=== PATIENT | female | born 1980 | race Caucasian/White ===

== ENCOUNTER 2023-03-19 10:10 | Inpatient (IN) | payer BC, SELFPAY ==
[2023-03-19 10:19] VITALS: BP 125/85; PULSE 93; RESP 18; TEMP 36.6; O2SAT 99; BMI 39.5
--- NOTE | 2023-03-19 11:47 | ED.GENADULT ---
HPI - General Adult General Date Seen: 03/19/23 Chief complaint: Eye Problems Stated complaint: Needs steroid/IV Time Seen by Provider: 03/19/23 11:03 Source: patient and RN notes reviewed Mode of arrival: ambulatory Limitations: no limitations History of Present Illness HPI narrative: Patient is a 42-year-old referred here from her eye clinic for possible optic neuritis treatment. She says a couple weeks ago she developed fuzziness in her upper vision on the left. She says she rubbed her eye and it was painful. Her primary doctor put her on an antibiotic for a potential sinus infection but vision has continued to deteriorate. She was seen a total of 3 times in the eye clinic in today with the microscope she was felt to have subtle optic nerve swelling. She does have pain in the eye, she has pain when she looks up. She has not had any redness or photophobia. She has increased pain when she lays down at night. No trauma to the eye. No history of similar symptoms. She was sent here for an MRI and for IV steroids as well as coordination with a neurologist. Related Data Home Medications Medication Instructions Recorded Confirmed amoxicillin 875 mg-potassium 1 tab PO BID 03/19/23 03/19/23 clavulanate 125 mg tablet escitalopram oxalate 20 mg tablet 20 mg PO DAILY 03/19/23 03/19/23 Allergies Allergy/AdvReac Type Severity Reaction Status Date / Time No Known Drug Allergies Allergy Verified 03/19/23 10:23 Review of Systems Status of ROS: Reports: 10 or more systems reviewed and unremarkable except as noted in History and below [facility] Medical History (Updated 03/19/23 @ 14:16 by April Tracy MD) Anxiety ?F41.9 - Anxiety disorder, unspecified (ICD-10) Surgical History (Updated 03/19/23 @ 13:45 by Jessica Miller MD) H/O gastric sleeve ?Z90.3 - Acquired absence of stomach [part of] (ICD-10) Family History (Updated 03/19/23 @ 13:46 by Jessica Miller MD) Grandfather Multiple sclerosis Grandmother Multiple sclerosis Social History (Updated 03/19/23 @ 13:47 by Jessica Miller MD) Narrative: Lives with and 3 children. 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 No alcohol use, nonsmoker. able be medical decision maker if needed. Patient requests full code status. Exam Narrative: Exam Narrative: Vital signs as noted above. In general, an alert, well-appearing patient. Head: Normocephalic, atraumatic. Eyes: She has an afferent pupillary defect on the left. Extraocular movements are full. Pain with upward gaze. Conjunctivae are normal. ENT: Mucous membranes are moist. Throat is normal. Neck: Supple without lymphadenopathy. Heart: Regular rate and rhythm. No murmur or rub. Lungs: Clear bilaterally. No increased work of breathing, crackles or wheezes. Extremities: Well perfused. Pulses intact. Neurologic: Patient is alert and oriented to person and place. Speech is fluent. Face is symmetric. Moves all extremities equally. Affect: Normal. Skin: Warm and dry. Well perfused. Const: Vital Signs, click to edit/add: Vital Signs - 24 hr 03/19/23 10:19 Temperature 97.9 F Pulse Rate [Left P ulse Oximeter] 93 Respiratory Rate 18 Blood Pressure [Le ft Upper Arm] 125/85 Pulse Oximetry 99 Oxygen Delivery Me thod Room Air Documenting provider has reviewed patient's vital signs: yes Course Reevaluation(s) Reevaluation #1: I did speak with the patient's eye care provider, Marissa Mari with [facility] eye clinic in [place]. She was uncertain how to treat this and asked that I consult with Neurology. I talked with Dr. Joel at [facility]. He felt that given that her symptoms are acute and continue to be progressive that she would benefit from q.i.d. IV steroids for couple of days. Therefore I have recommended admission to her. She is comfortable without. An IV was placed and we gave her 250 mg of IV Solu-Medrol. I talked with MRI and they will get her in when they can for an MRI of the brain with and without contrast. Vital Signs Vital signs: Initial Vital Signs Temperature 97.9 F 03/19/23 10:19 Temperature Source Temporal Artery Scan 03/19/23 10:19 Pulse Rate 93 03/19/23 10:19 Pulse Rhythm Regular 03/19/23 10:19 Pulse Strength 3+ Normal 03/19/23 10:19 Respiratory Rate 18 03/19/23 10:19 Blood Pressure 125/85 03/19/23 10:19 Blood Pressure Mean 98 03/19/23 10:19 Blood Pressure Position Sitting 03/19/23 10:19 Pulse Oximetry 99 03/19/23 10:19 Oxygen Delivery Method Room Air 03/19/23 10:19 Vital Signs Temperature 97.9 F 03/19/23 10:19 Pulse Rate 93 03/19/23 10:19 Respiratory Rate 18 03/19/23 10:19 Blood Pressure 125/85 03/19/23 10:19 Pulse Oximetry 99 03/19/23 10:19 Oxygen Delivery Method Room Air 03/19/23 10:19 Temperature 97.9 F 03/19/23 10:19 Pulse Rate 93 03/19/23 10:19 Respiratory Rate 18 03/19/23 10:19 Blood Pressure 125/85 03/19/23 10:19 Pulse Oximetry 99 03/19/23 10:19 Oxygen Delivery Method Room Air 03/19/23 10:19 Medical Decision Making Lab Data Labs: Lab Results 03/19/23 03/19/23 Range/Units 11:50 12:28 WBC 7.89 (4.50-11.00) K/uL RBC 4.33 (4.00-5.20) m/uL Hgb 13.8 (12.0-16.0) gm/dL Hct 41.1 (33.0-51.0) % MCV 95 (80-100) fL MCH 32 (26-34) pg MCHC 34 (32-36) gm/dL RDW Coeff of Jeffy 12.1 (11.5-15.5) % Plt Count 350 (140-440) K/uL Neut % (Auto) 76.6 H (42.0-72.0) % Lymph % (Auto) 15.5 L (20-44) % Becker % (Auto) 5.6 (0.0-11.0) % Eos % (Auto) 1.9 (0.0-7.0) % Baso % (Auto) 0.3 (0.0-3.0) % Neut # (Auto) 6.00 (1.7-7.0) K/uL Lymph # (Auto) 1.20 (0.90-2.90) K/uL Becker # (Auto) 0.40 (0.00-0.90) K/UL Eos # (Auto) 0.15 (0.00-0.50) K/uL Baso # (Auto) 0.02 (0.00-0.30) K/uL SARS-CoV-2 (PCR) Negative SARS-CoV-2 (Negative) Influenza Type A (PCR) Negative PCR FLU A (Negative) Influenza Type B (PCR) Negative PCR FLU B (Negative) Discharge Plan Discharge Clinical Impression: Optic neuritis Patient Disposition: Admitted As Inpatient Condition: Stable Activity Level: No Restrictions Discharge Diet: Regular
[2023-03-19] MEDS: METHYLPREDNISOLONE SOD SUCC 62.5 MG/ML (125) 250 MG IVP (12:45)
[2023-03-19 13:28] LABS: PCR FLU A Negative PCR FLU A (Negative); PCR FLU B Negative PCR FLU B (Negative)
[2023-03-19 13:29] LABS: SARS PCR* Negative SARS-CoV-2 (Negative)
--- NOTE | 2023-03-19 13:33 | PM.IMHP1 ---
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 She had been having issues with her left eye for approximately 1 week; so 1 of her optometrists partners and her PCP last week for intermittent blurry vision and left eye pain. Apparently, dilated eye exam last week was within normal limits with 20/20 vision; today, she was found to be 200/20 with concern for optic neuritis. Patient continues to note continued intermittent fuzziness in her L eye and pain in her left eye, worse towards the end of the day. In the emergency room, Neurology was consulted. They recommend Solu-Medrol 125 mg q.i.d. for 2 days followed by oral steroid taper. Patient also needs an MRI of her brain with and without contrast to evaluate for MS or other intracranial process. Past medical history updated below. Patient's PCP is Dr. Chow locally. Review of Systems Narrative: - has noted twitching of her RIGHT upper eyelid over the past few days, right eye's vision is within normal limits - intermittent achiness of bilateral knees and right hip, no other arthralgias - no concerning skin lesions or rashes - no abdominal pain - no urinary concerns - has a headache when I see her, this started after receiving Solu-Medrol in the ER [facility] Medical History (Updated 03/19/23 @ 13:45 by Jessica Miller MD) Anxiety ?F41.9 - Anxiety disorder, unspecified (ICD-10) Surgical History (Updated 03/19/23 @ 13:45 by Jessica Miller MD) H/O gastric sleeve ?Z90.3 - Acquired absence of stomach [part of] (ICD-10) Family History (Updated 03/19/23 @ 13:46 by Jessica Miller MD) Grandfather Multiple sclerosis Grandmother Multiple sclerosis Social History (Updated 03/19/23 @ 13:47 by Jessica Miller MD) Narrative: 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 able be medical decision maker if needed. Patient requests full code status. Meds Home Medications and Allergies Home Medications Medication Instructions Recorded Confirmed Type escitalopram oxalate 20 mg tablet 20 mg PO DAILY 03/19/23 03/19/23 History Allergies Allergy/AdvReac Type Severity Reaction Status Date / Time No Known Drug Allergies Allergy Verified 03/19/23 10:23 Exam Narrative: Exam Narrative: GEN: Alert and oriented, sitting comfortably in bed HEENT: Notably sees fuzziness and color changes in left lateral visual field. EOMIs bilaterally, no scleral icterus CV: RRR, No concerning murmurs, rubs, or gallops R: LCTA bilaterally without concerning wheezing, rales, or rhonchi Ext: wwp, no concerning edema Skin: No concerning skin lesions or rashes on exposed skin Neuro: Nonfocal Psych: Appropriate Const: Vital Signs, click to edit/add: Vital Signs - 24 hr 03/19/23 10:19 Temperature 97.9 F Pulse Rate [Left P ulse Oximeter] 93 Respiratory Rate 18 Blood Pressure [Le ft Upper Arm] 125/85 Pulse Oximetry 99 Oxygen Delivery Me thod Room Air Assessment and Plan Assessment and plan (1) Optic neuritis: Problem comment: - noted by retarder operator 03/19 - per Neurology, treat with 250mg of Solu-Medrol IV QID followed by oral Prednisone taper - MRI of brain with and without contrast ordered, plan pending results Status: Acute Plan - per above - IV PPI given steroid use and history of gastric sleeve - prn anti-anxiety and sleep medications given high dose steroids - SCDs and ambulation for ppx
--- NOTE | 2023-03-19 13:50 | CRLHL7_ITS ---
For Patients: As a result of the Cures Act, medical imaging exams and procedure reports are released immediately into your electronic medical record. You may view this report before your referring provider. If you have questions, please contact your health care provider. INDICATION: Optic neuritis. TECHNIQUE: Multiplanar multisequence MR imaging acquired through the brain prior to and following intravenous contrast. COMPARISON: None. FINDINGS: Mild supratentorial and infratentorial T2 hyperintense white matter lesions. Supratentorial lesions notably involve the periventricular and subcortical white matter as well as the right corpus callosum posterior body. Notable infratentorial lesion within the left ventral pat. Mild T1 hypointense lesion load. No enhancing lesions. Pathologic enhancement within the left optic nerve intracavitary segment (series 9, image 14 and series 8, image 18). The ventricles and sulci are within normal limits for patient age. No mass effect or midline shift. No intracranial hemorrhage or pathologic extra-axial fluid collection. No diffusion restriction to suggest acute infarction. No pathologic brain parenchymal enhancement. The major arterial flow voids of the skullbase are preserved. The globes are symmetric. The paranasal sinuses are well aerated. Trace left mastoid effusion. IMPRESSION: 1. Mild supratentorial and infratentorial T2 hyperintense white matter lesions, most compatible with sequelae of demyelinating disease such as multiple sclerosis. No enhancing lesions to suggest active demyelination. Mild T1 hypointense lesion load without cerebral volume loss. 2. Pathologic enhancement within the left optic nerve intracanalicular segment likely represents sequelae of optic neuritis. Dictated by Landen Lawler MD @ 03/19/2023 8:46:11 PM (Electronically Signed)
[2023-03-19 14:04] LABS: Basophils Absolute Auto 0.02 K/uL (0.00-0.30); Basophils Percent Auto 0.3 % (0.0-3.0); Eosinophils Absolute Auto 0.15 K/uL (0.00-0.50); Eosinophils Percent Auto 1.9 % (0.0-7.0); Hematocrit 41.1 % (33.0-51.0); Hemoglobin* 13.8 gm/dL (12.0-16.0); Immature Granulocytes Abs Auto 0.01 K/uL (0.00-0.30); Immature Granulocytes Pct Auto 0.1 %; Lymphocytes Percent Auto 15.5 % (20-44); Mean Corpuscular HGB Conc 34 gm/dL (32-36); Mean Corpuscular Hemoglobin 32 pg (26-34); Mean Corpuscular Volume 95 fL (80-100); Monocytes Percent Auto 5.6 % (0.0-11.0); Neutrophils Percent Auto 76.6 % (42.0-72.0); Platelet Count* 350 K/uL (140-440); RDW Coefficient of Variation % 12.1 % (11.5-15.5); Red Blood Count 4.33 m/uL (4.00-5.20); White Blood Count* 7.89 K/uL (4.50-11.00)
--- NOTE | 2023-03-19 14:04 | ED.NURSE ---
Pt in a gown and prefers to keep her pants on at this time. Pt transporting with all her belonging to Med/Surg floor with Tech.
[2023-03-19 14:09] LABS: Slide Review Reflex No
[2023-03-19 14:17] VITALS: BP 133/86; PULSE 85; RESP 18; TEMP 36.7; O2SAT 96
[2023-03-19 14:18] LABS: Albumin* 4.1 g/dL (3.3-5.0); Chloride* 105 mmol/L (96-114); Potassium* 3.5 mmol/L (3.6-5.1); Sodium* 139 mmol/L (135-149)
[2023-03-19 14:20] LABS: Creatinine* 0.8 mg/dL (0.5-1.5); Est. Creatinine Clearance* 91.47; Estimated Glomerular Filt Rate 94 ml/min
[2023-03-19 14:21] LABS: Alanine Aminotransferase* 14 U/L (4-35); Alkaline Phosphatase* 84 U/L (40-150); Aspartate Amino Transferase* 18 U/L (12-35); Bilirubin Total* 0.6 mg/dL (0.1-1.5); Blood Urea Nitrogen* 11 mg/dL (5-24); Calcium* 8.9 mg/dL (8.4-10.6); Carbon Dioxide* 30 mmol/L (20-32); Glucose* 77 mg/dL (60-115); Total Protein* 7.1 g/dL (6.0-8.3)
[2023-03-19 15:00] VITALS: BP 133/86; PULSE 85; RESP 18; TEMP 36.7; O2SAT 96
[2023-03-19 15:11] LABS: Vitamin B12* 424 pg/mL (243-894)
[2023-03-19] MEDS: PANTOPRAZOLE SODIUM 40 MG INJ IVP (15:42)
[2023-03-19] MEDS: ACETAMINOPHEN 325 MG TABLET 975 MG PO (16:45)
[2023-03-19] MEDS: METHYLPREDNISOLONE SOD SUCC 62.5 MG/ML (125) 125 MG IVP (18:27)
[2023-03-19 20:00] VITALS: BP 120/83; PULSE 96; RESP 20; TEMP 36.7; O2SAT 95
--- NOTE | 2023-03-19 22:01 | P.IMPN_ITS ---
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 We discussed optic neuritis, MS, treatment with high dose steroids, and recommendation to see neurology as an outpatient. Exam Const: Vital Signs, click to edit/add: Vital Signs - 24 hr 03/19/23 10:19 03/19/23 14:17 03/19/23 15:00 Temperature 97.9 F 98.1 F Pulse Rate [Left P ulse Oximeter] 93 Pulse Rate [Pulse Oximeter] 85 85 Respiratory Rate 18 18 18 Blood Pressure [Le ft Upper Arm] 125/85 Blood Pressure [Ri ght Arm] 133/86 Pulse Oximetry 99 96 Oxygen Delivery Me thod Room Air Room Air 03/19/23 15:00 03/19/23 15:00 03/19/23 14:17 Temperature 98.1 F Pulse Rate [Left P ulse Oximeter] Pulse Rate [Pulse Oximeter] 85 Respiratory Rate 18 18 18 Blood Pressure [Le ft Upper Arm] Blood Pressure [Ri ght Arm] 133/86 Pulse Oximetry 96 96 96 Oxygen Delivery Me thod Room Air Room Air Room Air 03/19/23 20:00 Temperature 98.0 F Pulse Rate [Left P ulse Oximeter] Pulse Rate [Pulse Oximeter] 96 Respiratory Rate 20 Blood Pressure [Le ft Upper Arm] Blood Pressure [Ri ght Arm] 120/83 Pulse Oximetry 95 Oxygen Delivery Me thod Room Air Labs Labs: Laboratory Results - last 24 hr 03/19/23 03/19/23 11:50 12:28 WBC 7.89 RBC 4.33 Hgb 13.8 Hct 41.1 MCV 95 MCH 32 MCHC 34 RDW Coeff of Jeffy 12.1 Plt Count 350 Neut % (Auto) 76.6 H Lymph % (Auto) 15.5 L Barbour % (Auto) 5.6 Eos % (Auto) 1.9 Baso % (Auto) 0.3 Neut # (Auto) 6.00 Lymph # (Auto) 1.20 Barbour # (Auto) 0.40 Eos # (Auto) 0.15 Baso # (Auto) 0.02 Sodium 139 Potassium 3.5 L Chloride 105 Carbon Dioxide 30 BUN 11 Creatinine 0.8 Estimated Creat Clear 91.47 Estimated GFR 94 Glucose 77 Calcium 8.9 Magnesium 2.0 Total Bilirubin 0.6 AST 18 ALT 14 Alkaline Phosphatase 84 Total Protein 7.1 Albumin 4.1 Vitamin B12 424 SARS-CoV-2 (PCR) Negative SARS-CoV-2 Influenza Type A (PCR) Negative PCR FLU A Influenza Type B (PCR) Negative PCR FLU B Ordering Physician: Jessica Miller M.D. Date of Service: 03/19/23 Procedure(s): MR head/brain wo/w con Accession Number(s): [id number] cc: Jessica Miller M.D.; Mattie Gould M.D.~ For Patients: As a result of the Cures Act, medical imaging exams and procedure reports are released immediately into your electronic medical record. You may view this report before your referring provider. If you have questions, please contact your health care provider. INDICATION: Optic neuritis. TECHNIQUE: Multiplanar multisequence MR imaging acquired through the brain prior to and following intravenous contrast. COMPARISON: None. FINDINGS: Mild supratentorial and infratentorial T2 hyperintense white matter lesions. Supratentorial lesions notably involve the periventricular and subcortical white matter as well as the right corpus callosum posterior body. Notable infratentorial lesion within the left ventral pat. Mild T1 hypointense lesion load. No enhancing lesions. Pathologic enhancement within the left optic nerve intracavitary segment (series 9, image 14 and series 8, image 18). The ventricles and sulci are within normal limits for patient age. No mass effect or midline shift. No intracranial hemorrhage or pathologic extra-axial fluid collection. No diffusion restriction to suggest acute infarction. No pathologic brain parenchymal enhancement. The major arterial flow voids of the skullbase are preserved. The globes are symmetric. The paranasal sinuses are well aerated. Trace left mastoid effusion. IMPRESSION: 1. Mild supratentorial and infratentorial T2 hyperintense white matter lesions, most compatible with sequelae of demyelinating disease such as multiple sclerosis. No enhancing lesions to suggest active demyelination. Mild T1 hypointense lesion load without cerebral volume loss. 2. Pathologic enhancement within the left optic nerve intracanalicular segment likely represents sequelae of optic neuritis. Dictated by Landen Lawler MD @ 03/19/2023 8:46:11 PM (Electronically Signed)
[2023-03-20] VITALS (7 sets, daily range): BP systolic 107–132; BP diastolic 70–93; PULSE 78–98; RESP 12–18; TEMP 36.4–37.1; O2SAT 94–98
[2023-03-20] MEDS: METHYLPREDNISOLONE SOD SUCC 62.5 MG/ML (125) 125 MG IVP ×3 (00:05→12:07)
[2023-03-20] MEDS: SODIUM CHLORIDE 0.9 % (FLUSH) 10 ML SYRINGE 5 ML IVF ×3 (00:21→21:03)
[2023-03-20] MEDS: MELATONIN 3 MG TABLET PO (02:02)
--- NOTE | 2023-03-20 07:38 | PC.NURSE ---
Pt is alert and oriented x3. Afebrile. Pt denies chest pain, SOB, and N/V. Pt continues to report blurred and darkened vision but states ?I can now see the clock that I could not see when I first got here.? Pt is up Ind, voiding, and tolerating a regular diet. Pt reports sleeping poorly throughout night, PRN melatonin was given with minimal relief.?Pt IV was taken out around 0600 do to infiltration, catheter tip was intact.
[2023-03-20] MEDS: ESCITALOPRAM 10 MG TABLET 20 MG PO (11:21)
[2023-03-20] MEDS: ACETAMINOPHEN 325 MG TABLET 975 MG PO (12:17)
[2023-03-20] MEDS: METHYLPREDNISOLONE SOD SUCC 1,000 MG in 0.9 % SODIUM CHLORIDE 100 ml 100 ML 116 MG IVPB (13:50)
[2023-03-20] MEDS: PANTOPRAZOLE SODIUM 40 MG INJ IVP (14:06)
[2023-03-20 15:06] LABS: Color CSF Colorless (Colorless); Total Volume 5.5 mL (0-6)
[2023-03-20 15:32] LABS: CSF Mononuclear Cells 100 %; CSF Polynuclear Cells 0 %; WBC, CSF 4 Cells/uL
[2023-03-20 15:58] LABS: RBC, CSF 1 Cells/uL
[2023-03-20 16:00] LABS: Appearance CSF Clear (Clear)
--- NOTE | 2023-03-20 17:05 | P.IMPN_ITS ---
Progress Note: A&P Assessment and plan (1) Optic neuritis: Problem details: - noted by business teacher 03/19 - MRI concerning for MS - reviewed with Dr. Underwood of [facility] on 03/20: he recommends changing steroid dosing to 1000mg of IV Solumedrol once daily for 5 days, no taper - outpatient referral to [facility] placed 03/20/23 Status: Acute (2) Multiple sclerosis: Status: Suspected Plan - continue high dose IV steroid - if patient remains stable and continues to tolerate, home tomorrow with outpatient IV steroid treatment - updated at bedside, questions answered Subjective Date Seen: 03/20/23 Interval history: No acute events overnight. Patient is aware of her MRI results (likely MS). L eye pain has improved, still has visual field deficits. Exam Narrative: Exam Narrative: GEN: Alert and oriented, sitting comfortably in bed. Notes continued decrease vision in L visual field, no scleral icterus. She is breathing comfortably without tachypnea. Extremities are wwp without edema. She has no concerning skin lesions or rashes on exposed skin Const: Vital Signs, click to edit/add: Vital Signs - 24 hr 03/19/23 20:00 03/20/23 00:05 03/20/23 00:05 Temperature 98.0 F Pulse Rate [Pulse Oximeter] 96 89 Respiratory Rate 20 18 18 Blood Pressure [Ri ght Arm] 120/83 Pulse Oximetry 95 94 Oxygen Delivery Me thod Room Air Room Air 03/20/23 00:05 03/20/23 02:00 03/20/23 07:00 Temperature 97.6 F 97.7 F Pulse Rate [Pulse Oximeter] 89 78 79 Respiratory Rate 18 18 18 Blood Pressure [Ri ght Arm] 132/81 111/74 Pulse Oximetry 94 95 Oxygen Delivery Me thod Room Air Room Air 03/20/23 07:00 03/20/23 07:00 03/20/23 11:00 Temperature 98.1 F 98.0 F Pulse Rate [Pulse Oximeter] 79 82 Respiratory Rate 16 18 18 Blood Pressure [Ri ght Arm] 107/70 124/85 Pulse Oximetry 95 95 98 Oxygen Delivery Ny thod Room Air Room Air Room Air 03/20/23 15:00 03/20/23 15:00 Temperature 98.7 F Pulse Rate [Pulse Oximeter] 98 Respiratory Rate 16 Blood Pressure [Ri ght Arm] 116/93 H Pulse Oximetry 96 96 Oxygen Delivery Me thod Room Air Room Air Labs Labs: Laboratory Results - last 24 hr 03/20/23 13:54 CSF Volume 5.5 CSF Appearance Clear CSF Color Colorless CSF WBC 4 CSF RBC 1 CSF Mononuclear Cells 100 CSF Polynuclear WBCs 0
--- NOTE | 2023-03-20 19:12 | PC.NURSE ---
Alert and oriented x 3, denies any pain at this time. Lungs clear, bowels active x 4 quadrants. Independent in room. Continues to report blurry vision to left eye, no change since admission. Iv to right hand patent and flushed without difficulty. Patient declined discharging home after discussion with her . Appetite fair, patient reports foods and fluids taste weird. Reporting increase restless leg symptoms, patient has walked the hallways in attempt to help with restlessness. Dr. Miller updated with restlessness and would like staff to encourage patient to utilize prn Ativan. Patient agreed to utilize prn ativan at bedtime.
[2023-03-20 19:28] LABS: Glucose, CSF* 98 Mg/dL (40-70); Total Protein, CSF 39 Mg/dL (15-45)
[2023-03-20] MEDS: LORazepam 0.5 MG TABLET PO (21:02)
[2023-03-21 03:46] VITALS: RESP 12
--- NOTE | 2023-03-21 06:17 | PC.NURSE ---
Patient is alert and oriented x 4, on RA, vss, regular diet, up ad ti, intake and output is normal and patient denies pain.
[2023-03-21 07:00] VITALS: RESP 16; O2SAT 93
[2023-03-21 09:00] VITALS: BP 121/79; PULSE 84; RESP 16; TEMP 36.6; O2SAT 97
[2023-03-21] MEDS: ESCITALOPRAM 10 MG TABLET 20 MG PO (09:23)
[2023-03-21] MEDS: SODIUM CHLORIDE 0.9 % (FLUSH) 10 ML SYRINGE 5 ML IVF (09:23)
[2023-03-21] MEDS: METHYLPREDNISOLONE SOD SUCC 1,000 MG in 0.9 % SODIUM CHLORIDE 100 ml 100 ML 116 MG IVPB (10:34)
--- NOTE | 2023-03-21 11:39 | PM.DS1 ---
DS: Providers Provider Time Seen by Provider: 11:39 Date Seen: 03/21/23 Date of admission: 03/19/23 14:03 Primary care physician: Mattie Gould MD Admitting Clinician: Jessica Miller MD Attending Physician on discharge: Amandeep Bautista MD Date of Discharge: 03/21/23 DS: Diagnosis Discharge Diagnosis (1) Multiple sclerosis: Status: Suspected (2) Optic neuritis: Status: Acute Problem details: - noted by masticator 03/19 - MRI concerning for MS - reviewed with Dr. Underwood of [facility] on 03/20: he recommends changing steroid dosing to 1000mg of IV Solumedrol once daily for 5 days, no taper - outpatient referral to [facility] placed 03/20/23 - Eye pain completely resolved on day of discharge, still having blurry vision in affected eye on day of discharge DS: Summary Hospital Course Hospital Course: Kailyn had a 1 week history of worsening left eye pain and blurry vision. Serial optometry exams showed a decline in vision from 20/20 to 20/200 in her left eye. She was referred to the ER by Optometry. She received about a day of Solumedrol [address] Miller consulted Dr. Underwood of [facility] and he recommended they increase her Solumedrol to 1000 mg Q24 hours and do that for 5 days. [facility] is to contact her with an appointment soon. Status at Discharge Functional status at discharge: independent ambulation Time Spent with Patient Time attestation: Total time spent providing and/or coordinating discharge services: Time spent: Greater than 30 minutes Specific discharge activities: Counseling and coordinating care. Exam Const: Vital Signs, click to edit/add: Vital Signs - 24 hr 03/20/23 15:00 03/20/23 15:00 03/20/23 19:00 Temperature 98.7 F 98.7 F Pulse Rate [Pulse Oximeter] 98 96 Respiratory Rate 16 12 Blood Pressure [Ri ght Arm] 116/93 H 131/75 Pulse Oximetry 96 96 95 Oxygen Delivery Me thod Room Air Room Air Room Air 03/20/23 23:00 03/20/23 23:00 03/20/23 23:00 Temperature Pulse Rate [Pulse Oximeter] Respiratory Rate 12 12 Blood Pressure [Ri ght Arm] Pulse Oximetry Oxygen Delivery Me thod Room Air 03/21/23 03:46 03/21/23 09:00 03/21/23 07:00 Temperature 97.9 F Pulse Rate [Pulse Oximeter] 84 Respiratory Rate 12 16 16 Blood Pressure [Ri ght Arm] 121/79 Pulse Oximetry 97 93 Oxygen Delivery Me thod Room Air Room Air Cardiovascular exam regular rate and rhythm without murmur Lungs clear to auscultation bilaterally. Abdomen positive bowel sounds soft nontender. Neurologic exam shows decreased vision in the left eye. Otherwise cranial nerves are intact and symmetric. Musculoskeletal is she has good strength and range of motion x4. DS: Data Data Completed and Pending Labs on day of discharge: Labs from last 24 hours 03/20/23 13:54 CSF Volume 5.5 CSF Appearance Clear CSF Color Colorless CSF WBC 4 CSF RBC 1 CSF Mononuclear Cells 100 CSF Polynuclear WBCs 0 CSF Glucose 98 H CSF Total Protein 39 Imaging MRI - head: Radiologist's impression: INDICATION: Optic neuritis. TECHNIQUE: Multiplanar multisequence MR imaging acquired through the brain prior to and following intravenous contrast. COMPARISON: None. FINDINGS: Mild supratentorial and infratentorial T2 hyperintense white matter lesions. Supratentorial lesions notably involve the periventricular and subcortical white matter as well as the right corpus callosum posterior body. Notable infratentorial lesion within the left ventral pat. Mild T1 hypointense lesion load. No enhancing lesions. Pathologic enhancement within the left optic nerve intracavitary segment (series 9, image 14 and series 8, image 18). The ventricles and sulci are within normal limits for patient age. No mass effect or midline shift. No intracranial hemorrhage or pathologic extra-axial fluid collection. No diffusion restriction to suggest acute infarction. No pathologic brain parenchymal enhancement. The major arterial flow voids of the skullbase are preserved. The globes are symmetric. The paranasal sinuses are well aerated. Trace left mastoid effusion. IMPRESSION: 1. Mild supratentorial and infratentorial T2 hyperintense white matter lesions, most compatible with sequelae of demyelinating disease such as multiple sclerosis. No enhancing lesions to suggest active demyelination. Mild T1 hypointense lesion load without cerebral volume loss. 2. Pathologic enhancement within the left optic nerve intracanalicular segment likely represents sequelae of optic neuritis. Dictated by Landen Lawler MD @ 03/19/2023 8:46:11 PM (Electronically Signed) Discharge Plan Discharge Disposition: Home, Self-Care Date of Admission: 03/19/23 14:03 Attending Provider on Discharge: Amandeep Bautista Primary Care Provider: Mattie Gould I Condition: Stable Anticipated Discharge Date/Time: 03/21/23 11:30 Discharge Medications: New Methylprednisolone Sod Succ [SOLU-MedroL] 1000 MG 0.9 % SODIUM CHLORIDE 100 ml 100 ML 116 mls/hr IVPB Q24H Ordered By: Jessica Miller MD Last Taken: 03/20/23 13:50 116 mls/hr Methylprednisolone Sod Succ [SOLU-MedroL] 1000 MG 0.9 % SODIUM CHLORIDE 100 ml 100 ML 116 mls/hr IVPB Q24H Ordered By: Amandeep Bautista MD Last Taken: 03/21/23 10:34 116 mls/hr pantoprazole [Protonix] 40 mg tablet,delayed release (DR/EC) 40 mg PO DAILY Qty: 7 0RF lorazepam 0.5 mg tablet 0.5 mg PO QHS PRN (Reason: sleep) Qty: 8 0RF Continued escitalopram oxalate 20 mg tablet 20 mg PO DAILY Discontinued amoxicillin-pot clavulanate 875-125 mg tablet 1 tab PO BID Discharge Orders: Discharge Order (Routine); Ordered 03/21/23 Ordered By: Amandeep Bautista Patient Education: Optic Neuritis (DC) Additional Instructions: For sleep, can take Benadryl (generic name Diphenhydramine) 25-50mg before bed. Referral in for [facility] (can call and check on appt status at [phone]) Activity Level: No Restrictions Discharge Diet: Regular Follow Up Appointments: Mattie Gould MD [Primary Care Provider] - (early next week for hospital follow up and assess how she is doing off steroids, make sure she has [facility] follow up for MS) Forms: [employer] Info Instructions
--- NOTE | 2023-03-21 12:54 | PC.NURSE ---
Pt A&O. Denies pain. Pt reports continuing blurriness in left eye. D/c to home with IV in place for continuing infusions. D/c instructions given verbally to pt and a copy sent home. All questions answered. D/c at 2423
--- NOTE | 2023-03-21 18:13 | PM.PROC ---
Procedure Note Time Seen by Provider: 10:45 Date Seen: 03/20/23 Provider Contact Time: 11:15 Date of procedure: 03/20/23 Will [facility] bill your pro fee for this procedure?: Yes Pre-op diagnosis: Altered mental status Post-op diagnosis: same Procedure: Lumbar puncture Procedure Description: Chlorapre, 24g sprotte spinal needle at L3-L4 times 1. 1ml clear spinal fluid collected in 4 separate vials. Pt. tolerated the procedure well. No complications Surgeon: N/A Airport Operations Officer: Nishant Ahuja Estimated blood loss (mL): 0 IV fluids (mL): 0 Urine output (mL): 0 Pathology: specimen obtained, sent to pathology Condition: stable Disposition: floor (Report to RN)
== END 2023-03-21 12:42 | disposition home or self-care (01) | DRG 82 ==
LOC: ED 11:56 → MEDSURG 14:05
PROVIDERS: Admitting Provider Family Medicine; Emergency Provider Emergency Medicine; PCP Family Medicine; Visit Provider Family Medicine
DX: H46.9 Unspecified optic neuritis (principal); G35 Multiple sclerosis; Z90.3 Acquired absence of stomach [part of]; F41.9 Anxiety disorder, unspecified
CPT/HCPCS: 36415; 70553; 80053; 82607; 82945; 83735; 84157; 85025; 87070; 87158; 87631; 89051; 99284; A9270; A9575; C9113; J2930

== ENCOUNTER 2023-11-29 09:45 | Outpatient (RCR) | payer BC, SELFPAY | END 2023-12-19 11:35 | disposition home or self-care (01) | PROVIDERS: PCP Family Medicine; Visit Provider Family Medicine | DX: M25.551 Pain in right hip (principal); M25.552 Pain in left hip; M62.81 Muscle weakness (generalized); R29.898 Other symptoms and signs involving the musculoskeletal system; Z51.89 Encounter for other specified aftercare | CPT/HCPCS: 97035; 97110; 97140; 97161 ==

== ENCOUNTER → 2024-06-24 23:59 | Outpatient (RCR) | payer BC, SELFPAY ==
[2023-03-22 08:51] VITALS: BP 118/75; PULSE 83; RESP 16; TEMP 36.4; O2SAT 98
[2023-03-22] MEDS: SODIUM CHLORIDE 0.9 % (FLUSH) 10 ML SYRINGE IVF (09:05)
[2023-03-22] MEDS: 0.9 % SODIUM CHLORIDE 250 ml IV (09:05)
[2023-03-22] MEDS: METHYLPREDNISOLONE SOD SUCC 1,000 MG in 0.9 % SODIUM CHLORIDE 100 ml 100 ML 116 MG IVPB (09:05)
[2023-03-23 10:36] VITALS: BP 114/71; PULSE 80; RESP 16; TEMP 36.4; O2SAT 99
[2023-03-23] MEDS: 0.9 % SODIUM CHLORIDE 250 ml IV (10:47)
[2023-03-23] MEDS: SODIUM CHLORIDE 0.9 % (FLUSH) 10 ML SYRINGE IVF (10:47)
[2023-03-23] MEDS: METHYLPREDNISOLONE SOD SUCC 1,000 MG in 0.9 % SODIUM CHLORIDE 100 ml 100 ML 116 MG IVPB (10:47)
[2023-03-23 12:17] VITALS: BP 120/74; PULSE 63; RESP 16; TEMP 36.7; O2SAT 99
[2023-03-24] MEDS: METHYLPREDNISOLONE SOD SUCC 1,000 MG in 0.9 % SODIUM CHLORIDE 100 ml 100 ML 116 MG IVPB (11:14)
[2023-03-24 11:27] VITALS: BP 136/85; PULSE 67; RESP 18; TEMP 36.9; O2SAT 96
--- NOTE | 2023-03-24 12:25 | PC.NURSE ---
pt is very pleasant. no pain. right eye vision has improved some. new SL was started and d/c after infusion. no pain or any problems with infusion. pt left with family. SL was d/c intact.
== END | disposition home or self-care (01) ==
LOC: CCIC 03-22 08:30 → MS OUT 03-23 10:31
PROVIDERS: PCP Family Medicine; Referring Provider Family Medicine; Visit Provider Family Medicine
DX: G35 Multiple sclerosis (principal)
CPT/HCPCS: 96365; 99211; J2930; J7050

== ENCOUNTER 2025-09-03 16:40 | Emergency (ER) | payer BC, SELFPAY ==
--- OUTSIDE RECORDS SUMMARY | 2025-08-09 09:43 | XMS_ITS ---
Author Organization [facility] Address [address] [place] [address] , [facility] [address] [place] [address] Phone Care Team Providers Care Bottle Capping Machine Operator Name Role Phone Neptali YATES, Lilliam Krueger [phone] Conditions or Problems No information available. Medications Medication Instructions Start Date Stop Date Generic Name NDC Provider NALTREXONE HCL 50 MG TABS naltrexone [id number] Lilliam Gunderson PA-C Medications Administered No information available. Allergies, Adverse Reactions, Alerts No information available. Results Date Name Value Unit Range Flag Description Office Visit: Office Visit 6 M, BASILIO needed pt sched Chart Note MEDS REVIEW Done Documenta tion of current medications (procedure) Plan of Care Type Date Detail Appointment 10:00 AM [facility], [facility] [address], [place], [address], Appointment 10:30 AM [facility], [address], [address], Appointment 11:00 AM [facility], [address], [address], Appointment 02:00 PM Ranjit Navarro MD , [address] [place] [address] [employer], [facility] [address], [place], [address], Pending order Follow up Pending order Follow up Pending order MRI-Brain W/O MS Protocol Pending order MRI-Thoracic W/O MS Protocol Pending order MRI-Cervical W/O MS Protocol Pending order MRI-Brain W/O MS Protocol Pending order MRI-Cervical W/O MS Protocol Pending order MRI-Thoracic W/O MS Protocol Pending order ALT (SGPT) Pending order AST (SGOT) Pending order CBC with Diff/Pl atelet Pending order MARCE Virus Antibod y w/Reflex to Inhibition Assay Pending order Immunoglobulin A (IgA) Pending order Immunoglobulin G (IgG) Pending order Immunoglobulin M (IgM) Pending order CD19 (T and B Ce lls Total) Do not Schedule on Saturday Pending order Patient Instruct ions Procedures Code Procedure Name Date Entry Date ORDERS Patient Instructions ORDERS ALT (SGPT) ORDERS AST (SGOT) ORDERS CBC with Diff/Platelet 08/09 ORDERS Immunoglobulin A (IgA) 08/09 ORDERS Immunoglobulin G (IgG) 08/09 ORDERS Immunoglobulin M (IgM) 08/09 ORDERS CD19 (T and B Cells Total) Do not Schedul e on Saturday ORDERS MARCE Virus Antibody w/Reflex to Inhibition Assay Vital Signs Date Name Value Unit Description BP Diastolic 74 mm[Hg] blood pressu re, diastolic BP Systolic 126 mm[Hg] blood pressur e, systolic Immunizations No information available. Advance Directives No information available.
--- OUTSIDE RECORDS SUMMARY | 2025-08-09 09:43 | XMS_ITS ---
Author Organization [facility] Address [address] [place] [address] , [facility] [address] [place] [address] Phone Care Team Providers Care Drum Carrier Name Role Phone Neptali YATES, Lilliam Krueger [phone] Conditions or Problems No information available. Medications Medication Instructions Start Date Stop Date Generic Name NDC Provider NALTREXONE HCL 50 MG TABS naltrexone [id number] Lilliam Gunderson PA-C Medications Administered No information available. Allergies, Adverse Reactions, Alerts No information available. Results Date Name Value Unit Range Flag Description Office Visit: Office Visit 6 M, BASILIO needed pt sched Chart Note MEDS REVIEW Done Documenta tion of current medications (procedure) Plan of Care Type Date Detail Appointment 10:00 AM [facility], [facility] [address], [place], [address], Appointment 10:30 AM [facility], [address], [address], Appointment 11:00 AM [facility], [address], [address], Appointment 02:00 PM Ranjit Navarro MD , [address] [place] [address] [employer], [facility] [address], [place], [address], Pending order Follow up Pending order Follow [...]
--- OUTSIDE RECORDS SUMMARY | 2025-09-02 11:54 | XMS_ITS ---
Author Organization [facility] Address [address] [place] [address] , [facility] [address] [place] [address] Phone Care Team Providers Care Curing Bin Operator Name Role Phone Ramon RAMSEY, Ranjit Unavailable Conditions or Problems No information available. Medications No information available. Medications Administered No information available. Allergies, Adverse Reactions, Alerts No information available. Results No information available. Plan of Care Type Date Detail Appointment 10:00 AM [facility] [employer], [facility] [address], [address], Appointment 10:30 AM [facility] [employer], [facility] [address], [address], Appointment 11:00 AM [facility] [employer], [facility] [address], [address], Appointment 02:00 PM Ranjit Navarro MD , [facility] [employer], [facility] [address], [place], [address], Procedures No information available. Vital Signs No information available. Immunizations No information available. Advance Directives No information available.
--- OUTSIDE RECORDS SUMMARY | 2025-09-02 11:54 | XMS_ITS ---
Author Organization [facility] Address [address] [place] [address] , [facility] [address] [place] [address] Phone Care Team Providers Care Manager Rehab Name Role Phone Ramon RAMSEY, Ranjit Unavailable Conditions or Problems No information available. Medications No information available. Medications Administered No information available. Allergies, Adverse Reactions, Alerts No information available. Results No information available. Plan of Care Type Date Detail Appointment 10:00 AM [facility] [employer], [facility] [address], [place], [address], Appointment 10:30 AM [facility] [employer], [facility] [address], [place], [address], Appointment 11:00 AM [facility] [employer], [facility] [address], [place], [address], Appointment 02:00 PM Ranjit Navarro MD , [facility] [employer], [facility] [address], [place], [address], Procedures No information available. Vital Signs No information available. Immunizations No information available. Advance Directives No information available.
--- OUTSIDE RECORDS SUMMARY | 2025-09-02 16:06 | XMS_ITS ---
Author Organization [facility] Address [address] [place] [address] , [facility] [address] [place] [address] Phone Care Team Providers Care Bessemer Converter Blower Name Role Phone Ramon RAMSEY, Ranjit Unavailable Conditions or Problems No information available. Medications No information available. Medications Administered No information available. Allergies, Adverse Reactions, Alerts No information available. Results No information available. Plan of Care Type Date Detail Appointment 10:00 AM [facility] [employer], [facility] [address], [place], [address], Appointment 10:30 AM [facility] [employer], [facility] [address], [place], [address], Appointment 11:00 AM [facility] [employer], [facility] [address], [place], [address], Appointment 02:00 PM Ranjit Navarro MD , [facility] [employer], [facility] [address], [place], [address], Procedures No information available. Vital Signs No information available. Immunizations No information available. Advance Directives No information available.
--- OUTSIDE RECORDS SUMMARY | 2025-09-02 16:06 | XMS_ITS ---
Author Organization [facility] Address [address] [place] [address] , [facility] [address] [place] [address] Phone Care Team Providers Care Cost Estimating Engineer Name Role Phone Ramon RAMSEY, Ranjit Unavailable Conditions or Problems No information available. Medications No information available. Medications Administered No information available. Allergies, Adverse Reactions, Alerts No information available. Results No information available. Plan of Care Type Date Detail Appointment 10:00 AM [facility] [employer], [facility] [address], [place], [address], Appointment 10:30 AM [facility] [employer], [employer] [address], [place], [address], Appointment 11:00 AM [facility] [employer], [facility] [address], [place], [address], Appointment 02:00 PM Ranjit Navarro MD , [facility] [employer], [facility] [address], [place], [address], Procedures No information available. Vital Signs No information available. Immunizations No information available. Advance Directives No information available.
--- OUTSIDE RECORDS SUMMARY | 2025-09-03 16:43 | XMS_ITS | Clinical Summary ---
Author Organization [facility] Address [address] , [address] [place] [address] Phone Care Team Providers Care Air Sampling And Monitoring Name Role Phone MedRec, MedRec Unavailable Conditions or Problems Problem Name Problem Code Onset Date Status Entry Date Provider Comment Standard Description Annotate Vitamin D deficiency 12081972 (SNOMED CT) Active Brit Thibodeaux MD Vitamin D deficiency Hand numbness 463126262 (SNOMED CT) Active Demetrio Sweeney MD Numbness of hand Hand tingling 854019518 (SNOMED CT) Active Brit Thibodeaux MD Tingling of skin Multiple sclerosis, relapsing/rem itting 772511241 (SNOMED CT) Active Brit Thibodeaux MD Relapsing remitting multiple sclerosis Optic neuritis, left 69040258 (SNOMED CT) Active Brit Thibodeaux MD Optic neuritis Medication monitoring 080430724 (SNOMED CT) Active Brit Thibodeaux MD Medication monitoring Medications Medication Instructions Start Date Stop Date Generic Name NDC Provider NALTREXONE HCL 50 MG TABS naltrexone [id number] Lilliam Gunderson PA-C KESIMPTA 20 MG/0.4ML SOAJ ofatumumab [id number] Brit Thibodeaux MD KESIMPTA 20 MG/0.4ML SOAJ ADMINISTER 1 INJECTION UNDER THE SKIN MONTHLY STARTING AT WEEK 4 ofatumumab [id number] Lilliam Gunderson PA-C KESIMPTA 20 MG/0.4ML SOAJ ofatumumab [id number] Brit Thibodeaux MD BACLOFEN 10 MG TABS Take 1 tab by mouth once a day for muscle spasms/tightnes s baclofen [id number] Brit Thibodeaux MD multivit-min/clint benita fumarate Take 1 tablet by mouth daily. MULTI VITAMIN ORAL QIEUSER QIEUSER ESCITALOPRAM OXALATE 20 MG TABS Take 1 tablet by mouth every morning. escitalopram oxalate [id number] QIEUSER QIEUSER CYANOCOBALAMIN, VITAMIN B-12, ORAL Take 5,000 mcg by mouth daily. CYANOCOBALAMIN, VITAMIN B-12, ORAL QIEUSER QIEUSER VITAMIN D3 50 MCG (2000 UT) CAPS Take 1 capsule (2,000 Units total) by mouth daily. Indication: Bariatric surgery cholecalciferol (vitamin d3) [id number] QIEUSER QIEUSER ACETAMINOPHEN 500 MG TABS Take 2 tablets (1,000 mg total) by mouth every 6 (six) hours as needed for pain. acetaminophen [id number] QIEUSER QIEUSER Medications Administered No information available. Allergies, Adverse Reactions, Alerts Allergy Name Reaction Description Start Date Severity Statu s Provider ADHESIVE TAPE-SILICONES Other (see comments) Crit ical Active César Bucio Results Date Name Value Unit Range Flag Description Replaced Document: (P) HIV 1 /2 ANTIGEN/ANTIBODY,FOURTH GENERATION W/RFL, BILIRU ... BETA-HCG QL * beta HCG, serum, qualitative HCV VIRUS AB * Hepatiti s C virus 5-1-1 Ab [Presence] in Serum by Immunoblot ANTI-HBC * Hepatitis B virus core Ab [Presence] in Serum ANTI-HBS * Hepatitis B virus surface Ab [Presence] in Serum BILI TOTAL * mg/dL Bilirubin. total [Mass/volume] in Serum or Plasma HIV AB * HIV 2 gp125 A b [Presence] in Serum by Immunoblot Internal Other: Verbal Autho rization/Emergency Contact - OBS VERBAL_EMER DONE Verbal authorization and emergency contact Replaced Document: (P) AST, ALT, LYMPHOCYTE SUBSET PANEL 4, CBC (INCLUDES DIFF/ ... COMMENT#1 * COMMENT #1 CD4/CD8 % * % T-helper ce lls (CD4) to T-suppressor cells (CD8) ratio ABSOLUTE CD8 * absolute CD8 T-SUPPRESS % * % T-suppre ssor cells (CD8) as percent of blood lymphocytes ABSOLUTECD4 * {Cells}/ uL Absolute CD4 T-HELPER % * % T-helper c ells (CD4) as percent of blood lymphocytes Replaced Document: (P) AST, ALT, CBC (INCLUDES DIFF/PLT), IMMUNOGLOBULINS , T ... VITD 25OH TO * VITAMIN D, 25 OH, TOTAL Office Visit: Office Visit 6 M, BASILIO needed pt sched Chart Note MEDS REVIEW Done Documenta tion of current medications (procedure) Replaced Document: (P) AST, ALT, CBC (INCLUDES DIFF/PLT), IMMUNOGLOBULIN A, IMM ... % CD3 * % CD3 lymphocyt es, percent [id number] * % B Lymphs % (CD19) ABS CD19 * ABSOLUTE CD1 9 ABS LYMPHOCY * 10*3/uL Absolute Lymphocytes IMMUNOGLOM * mg/dL Immunoglob ulin M IMMUNO G * mg/dL IMMUNOGLOBUL IN G IMMUNOGLOB A * IMMUNOGL OBULIN A BASOPHIL % 0.4 % N Basophils/ 100 leukocytes in Blood by Manual count EOSINOPHIL % 1.7 % N Eosinoph ils/100 leukocytes in Blood by Manual count MONOCYTE % 5.5 % N Monocytes/ 100 leukocytes in Blood by Automated count LYMPHS % 13.2 % N Lymphocytes/ 100 leukocytes in Blood by Automated count PMN % 79.2 % N Neutrophils/1 00 leukocytes in Blood by Automated count BASOPH COUNT 40 CELLS/UL 10*3/mm3 0-200 N Bas ophils [#/volume] in Blood by Manual count EOS COUNT 168 CELLS/UL 10*3/mm3 15-500 N eosin ophil count, blood MONOSCT AUTO 545 CELLS/UL 10*3/uL 200-950 N Mon ocytes [#/volume] in Blood by Automated count LYMPH COUNT 1307 CELLS/UL 10*3/mm3 850-3900 N lymphocyte count , blood NEUTRO COUNT 7841 CELLS/UL 10*3/mm3 9318-2516 H neutrophil count , blood MPV 10.4 fL 7.5-12.5 N Platelet sarah n volume [Entitic volume] in Blood by Elena PLATELETS 384 THOUSAND/UL 10*3/mm3 140-400 N Platelets [#/volume] in Blood by Automated count RDW 12.0 % 11.0-15.0 N Erythrocyte distribution width [Ratio] by Automated count MCHC 32.4 G/DL 32.0-36.0 N MCHC [Mass/ volume] by Automated count MCH 32.7 pg 27.0-33.0 N MCH [Entiti c mass] by Automated count MCV 100.9 fL 80.0-100. 0 H MCV [Entitic volume] by Automated count HCT 42.6 % 35.0-45.0 N Hematocrit [Volume Fraction] of Blood by Automated count HGB 13.8 g/dL 11.7-15.5 N Hemoglobin [Mass/volume] in Blood RBC 4.22 MILLION/UL 10*6/mm3 3.80-5.10 N Erythrocytes [#/volume] in Blood by Automated count WBC 9.9 THOUSAND/UL 10*3/mm3 3.8-10.8 N Leukocytes [#/volume] in Blood by Automated count SGPT (ALT) * U/L Alanine aminotransferase [Enzymatic activity/volume] in Serum or Plasma SGOT (AST) * U/L Aspartate aminotransferase [Enzymatic activity/volume] in Serum or Plasma Internal Other: Authorizatio n AUTHBENEFIT Yes Authoriza tion: Assignment of Benefits and Payment Agreement AUTHVMEMTM Yes Authorizat ion: Authorization for [facility] to leave messages, voicemail, send text messages, send emails AUTHRELHCARE Yes Authoriz ation: Release/Retrieval of Information to/from Healthcare Facilities, Pharmacy Benefit Payers and Providers ROIAUTHOTHER Yes Authoriz ation: Release of Information - Authorize Others/Insurance - Payment and Healthcare Operations ROIMDCPAYHC Yes Authoriza tion: Release of Information - Authorize [facility] - Payment and Healthcare Operations AUTHPRIVPRAC Yes Authoriz ation: Notice of privacy practices HIECONSENT Yes Consent To Release information to the Health Information Exchange ([employer]) Lab Report: STRATIFY JCV(R) DxSELECT AB (W/INDEX)W/RFL INHIB JCV ANTIBODY POSITIVE A JCV Ant ibody Results ZZ-GE-unk 3.12 index H GE use o nly - for LinkLogic import when terms are not otherwise specified Plan of Care Type Date Detail Appointment 10:00 AM [facility] [place], [address], [facility] 10[facility] AM [facility] [place], [address], Appointment 11:00 [place], [address], Appointment 02:00 PM Ranjit Navarro MD , [facility] [employer], [address], Pending order Follow up Pending order Follow up Pending order MRI-Brain W/O MS Protocol Pending order MRI-Thoracic W/O MS Protocol Pending order MRI-Cervical W/O MS Protocol Pending order MRI-Brain W/O MS Protocol Pending order MRI-Cervical W/O MS Protocol Pending order MRI-Thoracic W/O MS Protocol Pending order MRI-Brain W/WO M S Protocol Pending order MRI-Orbit W/WO Pending order Solumedrol Infus ion #1: Acute MS Flare/Optic Neuritis/Transverse Myelitis Pending order NMO-IgG (Neuromy elitis Optica) Pending order Aquaporin-4 (AQP 4) (NMO-IgG) Ab with Reflex to Titer Pending order NMO-IgG (Neuromy elitis Optica) Pending Order exclud ed from report: Pending order Follow up Pending order Follow up Extend ed Pending order Follow up Extend ed Pending order Follow up Pending order Patient Instruct ions Pending order ALT (SGPT) Pending order AST (SGOT) Pending order CBC with Diff/Pl atelet Pending order MARCE Virus Antibod y w/Reflex to Inhibition Assay Pending order Immunoglobulin A (IgA) Pending order Immunoglobulin G (IgG) Pending order Immunoglobulin M (IgM) Pending order CD19 (T and B Ce lls Total) Do not Schedule on Saturday Pending order Patient Instruct ions Pending order ALT (SGPT) Pending order AST (SGOT) Pending order CBC with Diff/Pl atelet Pending order Immunoglobulin A (IgA) Pending order Immunoglobulin G (IgG) Pending order Immunoglobulin M (IgM) Pending order CD19 (T and B Ce lls Total) Do not Schedule on Saturday Pending order Instructions for Staff Pending order Follow up GIOVANY Pending order MRI-Brain W/WO M S Protocol Pending order MRI-Cervical W/W O MS Protocol Pending order MRI-Thoracic W/W O MS Protocol Pending order Instructions for Staff Pending order ALT (SGPT) Pending order AST (SGOT) Pending order CBC with Diff/Pl atelet Pending order CD19 (T and B Ce lls Total) Do not Schedule on Saturday Pending order Immunoglobulins IgG/A/M Pending order Follow up Extend ed Pending order ALT (SGPT) Pending order AST (SGOT) Pending order CBC with Diff/Pl atelet Pending order CD19 (T and B Ce lls Total) Do not Schedule on Saturday Pending order Immunoglobulins IgG/A/M Pending order ALT (SGPT) Pending order AST (SGOT) Pending order CBC with Diff/Pl atelet Pending order CD19 (T and B Ce lls Total) Do not Schedule on Saturday Pending order Immunoglobulins IgG/A/M Pending order MARCE Virus Antibod y w/Reflex to Inhibition Assay Pending order Vitamin D 25 Hyd travon Pending order MRI-Brain W/WO M S Protocol Pending order MRI-Cervical W/W O MS Protocol Pending order MRI-Thoracic W/W O MS Protocol Pending order Follow up with N eurologist or GIOVANY Pending order ALT (SGPT) Pending order AST (SGOT) Pending order CBC with Diff/Pl atelet Pending order CD19 (T and B Ce lls Total) Do not Schedule on Saturday Pending order Immunoglobulins IgG/A/M Pending order CD4/CD8 Ratio Pr ofile Pending order Follow up Pending order EMG bilateral up per ext Pending order Obtain imaging r eport and CD Pending order Obtain outside r ecords Pending order ALT (SGPT) Pending order AST (SGOT) Pending order Bilirubin Total (BIT) Pending order CBC with Diff/Pl atelet Pending order CD19 (T and B Ce lls Total) Do not Schedule on Saturday Pending order Hepatitis B Core Ab Pending order Hepatitis B Surf brittney Ab Pending order Hepatitis B Surf brittney Antigen Pending order Hepatitis C Ab ( HCV) Pending order HIV 1/2 Ab Scree bri Pending order Immunoglobulins IgG/A/M Pending order MARCE Virus Antibod y w/Reflex to Inhibition Assay Pending order Quantiferon (TB) Pending order Test S acacia - Qual Procedures Code Procedure Name Date Entry Date [id number] MRI-Brain W/WO MS Protocol 2 [id number] MRI-Orbit W/WO ORDERS NMO-IgG (Neuromyelitis Optica) ORDERS Patient Instructions ORDERS ALT (SGPT) ORDERS AST (SGOT) ORDERS CBC with Diff/Platelet 08/09 ORDERS Immunoglobulin A (IgA) 08/09 ORDERS Immunoglobulin G (IgG) 08/09 ORDERS Immunoglobulin M (IgM) 08/09 ORDERS CD19 (T and B Cells Total) Do not Schedule on Saturday ORDERS MARCE Virus Antibody w/ Reflex to Inhibition Assay ORDERS Instructions for Staff 02/08 ORDERS ALT (SGPT) ORDERS AST (SGOT) ORDERS CBC with Diff/Platelet 02/08 ORDERS Immunoglobulin A (IgA) 02/08 ORDERS Immunoglobulin G (IgG) 02/08 ORDERS Immunoglobulin M (IgM) 02/08 ORDERS CD19 (T and B Cells Total) Do not Schedule on Saturday ORDERS Patient Instructions ORDERS Follow up GIOVANY CPT-X8688I ProHance Gadolinium- based MR Contrast - 20 ml vial CPT-28784 MRI Brain W/WO CPT-27859 MRI Cervical W/WO CPT-40771 MRI Thoracic W/WO [id number] MRI-Thoracic W/WO MS Protocol [id number] MRI-Cervical W/WO MS Protocol [id number] MRI-Brain W/WO MS Protocol 2 CPT-G2211 Complex e/m visit add on 202 03/10/06 ORDERS Instructions for Staff 08/07 ORDERS ALT (SGPT) ORDERS AST (SGOT) ORDERS CBC with Diff/Platelet 08/07 ORDERS CD19 (T and B Cells Total) Do not Schedule on Saturday ORDERS Immunoglobulins IgG/A/M 2023 ORDERS Follow up Extended 5 [facility]-[id number] Documentation of current medicatio ns ORDERS ALT (SGPT) ORDERS AST (SGOT) ORDERS CBC with Diff/Platelet 02/13 ORDERS Vitamin D 25 Hydroxy ORDERS Immunoglobulins IgG/A/M 2023 ORDERS CD19 (T and B Cells Total) Do not Schedule on Saturday ORDERS MARCE Virus Antibody w/ Reflex to Inhibition Assay CPT-G2211 Complex e/m visit add on 202 03/04/15 [id number] MRI-Thoracic W/WO MS Protocol [id number] MRI-Brain W/WO MS Protocol 2 [id number] MRI-Cervical W/WO MS Protocol CPT-88333 MRI Thoracic W/WO CPT-93477 MRI Cervical W/WO CPT-[id number] ProHance Gadolinium- based MR Contrast - 20 ml vial CPT-81365 MRI Brain W/WO CPT-25296 Nerve Conduction 13 or more studies 10/10 CPT-47668 EMG with NCS (5+ muscles) - 2 limbs 10/10 ORDERS ALT (SGPT) ORDERS AST (SGOT) ORDERS CBC with Diff/Platelet 09/17 ORDERS Immunoglobulins IgG/A/M 2022 ORDERS CD4/CD8 Ratio Profile ORDERS CD19 (T and B Cells Total) Do not Schedule on Saturday ORDERS EMG bilateral upper ext 2022 ORDERS Follow up with Neurologist or GIOVANY [facility]-[id number] Documentation of current medicatio ns ORDERS Follow up [id number] Documentation of current medicatio ns ORDERS MARCE Virus Antibody w/ Reflex to Inhibition Assay ORDERS Obtain imaging report and CD ORDERS HIV 1/2 Ab Screening ORDERS CD19 (T and B Cells Total) Do not Schedule on Saturday ORDERS Quantiferon (TB) ORDERS Obtain outside records 06/14 ORDERS ALT (SGPT) ORDERS AST (SGOT) ORDERS Bilirubin Total (BIT) 06/14 ORDERS CBC with Diff/Platelet 06/14 ORDERS Test Serum - Qual ORDERS Hepatitis B Core Ab ORDERS Hepatitis B Surface Ab 06/14 ORDERS Hepatitis B Surface Antigen ORDERS Hepatitis C Ab (HCV) ORDERS Immunoglobulins IgG/A/M 2022 Vital Signs Date Name Value Unit Description Weight Measured 275 [lb_av] weight E& M Weight Measured 275 [lb_av] weight E& M BP Diastolic 74 mm[Hg] blood pressu re, diastolic BP Systolic 126 mm[Hg] blood pressur e, systolic Immunizations No information available. Advance Directives No information available.
--- OUTSIDE RECORDS SUMMARY | 2025-09-03 16:43 | XMS_ITS | Clinical Summary ---
Author Organization [facility] Address [address] [place] [address] Care Team Providers Care Telephone Quotation Clerk Name Role Phone Found, No Pcp MD Primary Care Provider Unavailab le Source Comments You are receiving this document as you are listed as the primary care provider,follow-up provider, or the patient has been referred to you for consultation.This is in compliance with the Medicare andMedicaid EHR Incentive Program,which states Providers who transition their patient to another setting of careor provider of care or refers their patient to another provider of care shouldprovide summary care record for each transition of care or referral. [facility] Active Problems Problem Noted Date Diagnosed Date Morbid obesity with BMI of 45.0-49.9, adult 01/03 Oligohydramnios in third trimester 01/27/2016 Multigravida of advanced maternal age in third t rimester 01/27/2016 Anxiety state 09/20/2006 Overview (10/02/2019): Anxiety state, unspecified Resolved Problems Problem Noted Date Diagnosed Date Resolved Date Excessive or frequent menstruation 04/04/2007 01/27/2016 Restless legs syndrome (RLS) 02/11/2007 01/27/2016 Immunizations Immunization Administration Dates Next Due Flu Vac (3+ yrs) 11/05/2007 Influenza IIV4 (Quadrivalent) 0.5mL (58682) 08/04 Family History Medical History Relation Name Comments Hypertension Father Skyler Psychiatry Father Skyler Depression/Anxi ety, following injury. Hypertension Mother Parris Other Brother Murtaza Albino Diabetes Maternal Grandmother Heart Disease Maternal Grandmother CHF Other Paternal Grandmother MS Relation Name Status Comments Father Skyler Alive Mother Parris Alive Brother Murtaza Alive Maternal Grandfather Alive Maternal Grandmother Paternal Grandfather Paternal Grandmother Social History Tobacco Use Types Packs/Day Years Used Date Smoking Tobacco: Never Smokeless Tobacco: Never Alcohol Use Standard Drinks/Week Comments No 0 (1 standard drink = 0.6 oz pur e alcohol) rarely Comments No Sex and Gender Information Value Date Recorded Sex Assigned at Not on file Legal Sex Female 1:12 PM CDT Gender Identity Not on file Sexual Orientation Not on file Occupation Industry Job Start Date Job End Date Teacher Not on file Not on file Not on file Not on file Not on file Not on file Not on file Plan of Treatment Health Maintenance Due Date Last Done Comments Cervical Cancer Screening Due 1979 Colon Cancer Screening Plan Due 1979 Hep C Screening (Preventive Services) 1979 Mammogram 1979 HIV Screening (Preventive Services) 1995 Adult Preventive Visit 1997 DTaP/Tdap/Td Vaccine (1 - Tdap) 1998 HepB Vaccine (1) 1998 HPV Vaccine (1 - 3-dose SCDM series) 2006 Cholesterol 2024 COVID-19 Vaccine (1 - 2023-2 5 season) 2025 Influenza Vaccine (#1) 2025 7, 11/05/2007 Zoster/Shingles Vaccine (1 o f 2) 2029 HepA Vaccine Aged Out No longer eligi ble based on patient's age to complete this topic Hib Vaccine Aged Out No longer eligi ble based on patient's age to complete this topic IPV (Polio) Vaccine Aged Out No longe r eligible based on patient's age to complete this topic MCV4 Vaccine Aged Out No longer eligi ble based on patient's age to complete this topic Meningococcal B Vaccine Aged Out No l onger eligible based on patient's age to complete this topic Pneumococcal Vaccine Aged Out No long er eligible based on patient's age to complete this topic Care Teams Telephone Quotation Clerk Relationship Specialty Start Date End Date Found, No [facility] [id number] [facility] [place] [address] PCP - General 08/12/12
--- OUTSIDE RECORDS SUMMARY | 2025-09-03 16:43 | XMS_ITS | Clinical Summary ---
Author Organization [facility] Address [address] [place] [address] Care Team Providers Care Dietitian Teaching Name Role Phone Pcp, No Unavailable Unavailable Pcp, No Unavailable Unavailable Pcp, No Unavailable Unavailable Mattie Gould MD Primary Care Provider [phone] Samantha Frye Unavailable Arpita Ponce RD Unavailable Allergies Active Allergy Reactions Criticality Noted Date Comments Adhesive Tape-Silicones Other - Describe In Comment Field Medium 06/06/2009 Skin redness Skin redness Other reaction(s): Other - Describe In Comment Field Skin redness Medications acetaminophen (TYLENOL EXTRA STRGTH) 500 mg tablet Take 1,000 mg by mouth. 9 Active cholecalciferol (VITAMIN D3) 2,000 unit capsule Take 2,000 Units by mouth. 9 Active cyanocobalamin (Vitamin B-12) 1,000 mcg tablet Take 1 Tablet (1,000 mcg) by mouth once daily. 90 Tablet 3 3 Active Kesimpta Pen 20 mg/0.4 mL pnij 3 Active naltrexone (REVIA) 50 mg tabletIndicatio ns:Class 3 severe obesity with body mass index (BMI) of 40.0 to 44.9 in adult, unspecified obesity type, unspecified whether serious comorbidity present (HC),Weight gain Take 0.5 Tablets (25 mg) by mouth once daily. Naltrexone should be stopped 7 days prior to any surgery or with concurrent oral opioids, opioid pain pump, opioid pain patches, opioid buccal films or medical marijuana. 30 Tablet 5 Active escitalopram oxalate (LEXAPRO) 20 mg tabletIndicatio ns:Anxiety Take 1 Tablet (20 mg) by mouth once daily in the morning. 90 Tablet 2 5 Active escitalopram oxalate (LEXAPRO) 20 mg tabletIndicatio ns:Anxiety Take 1 Tablet (20 mg) by mouth once daily in the morning. 93 Tablet 3 5 08/30/20 25 Discontin ued(*Avai lability/ Formulary change/Co st of medicatio n) Active Problems Problem Noted Date Diagnosed Date S/P gastric sleeve procedure 07/22/2025 Bilateral primary osteoarthritis of knee 025 Overview (01/11/2025): December 2024: Did bilateral cortisone knee injections. Only 1 week of good relief, then pain back. Acquired absence of both cervix and uterus 01/17 MS (multiple sclerosis) 05/06/2023 Overview (05/06/2023): [place] Optic neuritis 03/28/2023 03/28/2023 History of bariatric surgery 03/15/2021 Overview (03/15/2021): Gastric sleeve Dyslipidemia 04/30/2018 03/18/2023 Recurrent major depression in full remission 03/18/2023 Anxiety state, unspecified 09/20/2006 Resolved Problems Problem Noted Date Diagnosed Date Resolved Date Personal history of other medical treatment 04/30/2018 03/18/2023 01/17/2024 Multigravida of advanced mat ernal age in third trimester 01/27/2016 01/17/2024 Oligohydramnios in third trimester 01/27/2016 01/17/2024 Morbid obesity with BMI of 45.0-49.9, adult 01/27/2016 03/15/2021 Excessive or frequent menstruation 04/04/2007 01/27/2016 Restless legs syndrome (RLS) 02/11/2007 01/27/2016 Encounters Date Type Department Care Team Description 08/30/2025 Refill [facility] [address] [place] [address] Mattie Gould MD Refill Request (Escitalopram Oxalate) 08/26/2025 8:30 AM CDT Telemedicine [facility] - [facility] [address] [facility] [address] [place] [address] Telehealth ([facility] Follow up ) 08/26/2025 Travel 08/25/2025 8:15 AM CDT Orders Only [facility] [address] [place] [address] Lab, [facility] 08/25/2025 Travel 07/23/2025 9:00 AM CDT Telemedicine [facility] - [facility] [address] [facility] [address] [place] [address] Telehealth ([facility] Initial ) 07/23/2025 Travel 07/22/2025 10:30 AM CDT Telemedicine [facility] [address] [facility] [address] [place] [address] Samantha Frye PA Surgical Followup; Telehealth (Initial LAC RNY ) 07/22/2025 Travel 06/14/2025 Telephone [facility] [address] [place] [address] Mattie Gould MD Prior Authorization (semaglutide (Wegovy) 0.25 mg/0.5 mL subcutaneous pen (Excluded)) from Last 3 Months Immunizations Immunization Administration Dates Next Due AMB Influenza, IIV4 PF (=>6 mos Flulaval,Fluzone Fluarix)(Flu Clinic Only) 08/26/2020,08/31/2017 COVID-19 vaccine (Moderna 50mcg/0.5mL) 12YO+ BIVALENT PF, MDV 10/08/2022 COVID-19 vaccine (Pfizer-Bio NTech 30mcg/0.3mL) PF, MDV 10/20/2021,03/04/2021,02/11/2021 Hep B (Hepatitis B (Adult) Recombinant Adjuvanted) 04/16/2023 Hepatitis A (Adult) 04/16/2023 Hepatitis B (Adult) 05/31/2025 Influenza A (H1N1), Inactivated 10/04/2009 Influenza A (H1N1), Inactiva alberto (Age >=3 Years) 10/04/2009 Influenza Virus, Unspecified 09/10/2016, 08/24/2015,09/24/2014,2011,08/20/2011,09/21/2010,09/29/2009 Influenza, CCIIV3 (Age >=6 M O) (Egg Free) 08/31/2024 Influenza, IIV3 (Age >=3 years) 11/13/20 12,09/21/2010,09/29/2009,2007,11/05/2007 Influenza, IIV4 08/30/2023,,08/25/2019,2017,09/10/2016 Influenza, IIV4 (=>6mos) MDV 08/24/2015 Influenza,CCIIV4 PRESERV FREE 09/21/2022 Pneumococcal Conj 20-valent (Prevnar 20) 04/16/2023 Tdap 12/28/2015,05/11/2010 Zoster (Shingrix-RZV, recombinant) 05/31/2025, Family History Medical History Relation Name Comments Allergies Brother Murtaza Hypertension Father Skyler Psychiatric illness Father Skyler Depressi on/Anxiety, following injury. Diabetes Maternal Grandmother Mal Heart Disease Maternal Grandmother Mal CHF Anxiety disorder Mother Parris Hypertension Mother Parris Obesity Mother Parris Asthma Son Franco Cancer-breast No Family History Cancer-ovarian No Family History Relation Name Status Comments Brother Murtaza Alive Father Skyler Alive Maternal Grandfather Alive Maternal Grandmother Mal Mother Parris Alive Paternal Grandfather Paternal Grandmother Son Franco Alive Social History Tobacco Use Types Packs/Day Years Used Date Smoking Tobacco: Never Smokeless Tobacco: Never Tobacco Cessation:Counseling Given: Yes Alcohol Use Standard Drinks/Week Comments No 0 (1 standard drink = 0.6 oz pur e alcohol) rarely PHQ-2 Answer Date Recorded PHQ-2 TOTAL SCORE 0 07/23/2025 Social Connections Answer Date Recorded Do you often feel lonely or isolated from those around you? 0 05/30/2025 Financial Resource Strain Answer Date R ecorded Difficulty of Paying Living Expenses 3 05/30/2025 Difficulty of Paying Living Expenses Not on file 05/30/2025 Food Insecurity Answer Date Recorded Do you worry your food will run out before you are able to buy more? 1 05/30/2025 Transportation Needs Answer Date Record ed Does lack of transportation keep you from medica l appointments? 1 05/30/2025 Does lack of transportation keep you from work, meetings or getting things that you need? 1 05/30/2025 Housing Stability Answer Date Recorded What is your housing situation today? 1 05/30/2025 Utilities Answer Date Recorded Do you have trouble paying f or utilities (for example, heat, electricity, water, phone)? 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 Gender Identity Not on file Sexual Orientation Not on file Occupation Industry Job Start Date Job End Date Teacher Not on file Not on file Not on file Not on file Not on file Not on file Not on file Obstetrics History Para Term AB IAB SAB Ectopic Multiple Livin g Live Births 6 3 3 0 3 0 3 0 0 3 3 Date Outcome GA Total Labor Labor/2nd/3rd Weight Sex Type Anes PTL Tita A1 A5 Name Clin 2008 SAB 6w0 d U 2008 SAB 9w0 d SPONTA NEOUS 2009 Term 40w 0d 4.03 kg (8 lb 14 oz) F VAGINA L VACU N Livin g 2010 Term 40w 0d 4.22 kg (9 lb 5 oz) M Vag Livin g 5 SAB 5w0 d 2015 Term 38w 1d 4.54 kg (10 lb) M Vag Livin g 8 9 Bb (Kailyn ) [place] Delivery Location:[facility] Last Filed Vital Signs Vital Sign Reading Time Taken Comments Blood Pressure 117/78 05/31/2025 1:14 PM CDT Pulse 85 05/31/2025 1:14 PM CDT Temperature 36.8 C (98.2 F) 10/12/2024 1:27 PM TRADE SHOW SPECIALIST Respiratory Rate 16 01/29/2016 8:00 AM TRADE SHOW SPECIALIST Oxygen Saturation 98% 05/31/2025 1:14 PM CDT Inhaled Oxygen Concentration - - Weight 125.3 kg (276 lb 3.2 oz) 08/26/2025 8:00 AM CDT Height 172.7 cm (5' 7.99) 08/26/2025 8:00 AM CD T Body Mass Index 42.01 08/26/2025 8:00 AM CDT Plan of Treatment Upcoming Encounters Date Type Department Care Team (Late st Contact Info) Description 09/20/2025 11:30 AM CDT Telemedicine [facility] - [place] [address] [place] [id number] Samantha Frye PA [address] [place] [address] 10/19/2025 8:30 AM TRADE SHOW SPECIALIST Telemedicine [facility] - [facility] [address] [place] [address] [facility] [address] [place] [address] Health Maintenance Due Date Last Done Comments HPV series for age 9-45 (1 - 3-dose SCDM series) 2006 Hepatitis B series for 19+ (3 of 3 - 19+ 3-dose series) 07/26/2025 05/31/2025, 04/16/2023 Influenza Vaccine (#1) 2025 , 08/30/2023, 09/21/2022, Additional history exists Tetanus booster 12/28/2025 12/28/2015, 05/11/2010 Mammogram for age 45-75 03/16/2026 03/16/20, 03/16/2024, 11/11/2020 Depression screening for age 12+ 07/23/2026 07/23/2025, 07/22/2025 BMI (ht and wt on same day) for age 18+ 08/26/2026 08/26/2025, 07/23/2025, 07/22/2025, Additional history exists Fecal testing sDNA-FIT (Cologuard) for age 45-75 07/13/2028 07/13/2025 Lipids for age 45-75 05/31/2030 05/31/2025, 05/09/20 RSV vaccine for adults or (1 - 1-dose 75+ series) 2054 HIV for age 15-65 Addressed 04/16/2023 (Ve rified in Care Everywhere or Patient Record) Overridden with the intention of not completing the topic Hepatitis C screening for age 18-79 Addressed 04/16/2023 (Verified in Care Everywhere or Patient Record) Overridden with the intention of not completing the topic Pneumococcal series for age 6-49 Aged Out 04/16/2023 No longer eligible b ased on patient's age to complete this topic COVID-19 vaccine series Completed 08/31/20, 09/17/2023, 04/16/2023, Additional history exists Procedures Procedure Name Priority Date/Time Associated Diagnosis Comments HEMOGLOBIN A1C Routine 08/25/2025 8:21 AM CDT Class 3 severe obesity with body mass index (BMI) of 40.0 to 44.9 in adult, unspecified obesity type, unspecified whether serious comorbidity present (HC) Weight gain TSH WITH REFLEX Routine 08/25/2025 8:21 AM CDT Class 3 severe obesity with body mass index (BMI) of 40.0 to 44.9 in adult, unspecified obesity type, unspecified whether serious comorbidity present (HC) Weight gain INSULIN Routine 08/25/2025 8:21 AM CDT Class 3 severe obesity with body mass index (BMI) of 40.0 to 44.9 in adult, unspecified obesity type, unspecified whether serious comorbidity present (HC) Weight gain VITAMIN B1 (THIAMINE) BLOOD Routine 08/25/2025 8:21 AM CDT Class 3 severe obesity with body mass index (BMI) of 40.0 to 44.9 in adult, unspecified obesity type, unspecified whether serious comorbidity present (HC) S/P gastric sleeve procedure SDNA-FIT EXTERNAL (COLOGUARD) Routine 07/13/2025 12:30 PM CDT Screening for colon cancer LIPID PANEL W REFLEX MEASURED LDL Routine 05/31/2025 2:39 PM CDT History of bariatric surgery XR MAMMO BILAT SCREENING Routine 03/16/2025 1:17 PM CDT Encounter for screening mammogram for malignant neoplasm of breast from Last 3 Months or Most Recently Relevant to Health Maintenance Results * VITAMIN B1 (THIAMINE) BLOOD (08/25/2025 8:21 AM CDT) VITAMIN B1 (THIAMINE), BLOOD, LC/MS/MS 129 78 - 185 nmol/L 08/30/2025 8:35 PM CDT [facility] Comment: (Note) Vitamin supplementation within 24 hours prior to blood draw may affect the accuracy of the results. This test was developed and its analytical performance characteristics have been determined by [facility]. It has not been cleared or approved by FDA. This assay has been validated pursuant to the CLIA regulations and is used for clinical purposes. [facility] [address] [place] [address],[address] [place] [address] Armin Man MD, PhD Blood BLOOD SPECIMEN / Unknown [facility] / Unknown 08/25/2025 8:21 AM CDT 08/25/2025 8:21 AM CDT Samantha HO SEND OUTS Final Result [facility] [place] [facility] [address], * HEMOGLOBIN A1C (08/25/2025 8:21 AM CDT) HEMOGLOBIN A1C 5.5 <5.7 % 08/26/2025 4:25 AM CDT [facility] Comment: For the purpose of screening for the presence of diabetes: <5.7% Consistent with the absence of diabetes 5.7-6.4% Consistent with increased risk for diabetes (prediabetes) > or =6.5% Consistent with diabetes This assay result is consistent with a decreased risk of diabetes. Currently, no consensus exists regarding use of hemoglobin A1c for diagnosis of diabetes in children. According to [place] Diabetes Association (ADA) guidelines, hemoglobin A1c <7.0% represents optimal control in non- diabetic patients. Different metrics may apply to specific patient populations. Standards of Medical Care in Diabetes(ADA). Blood BLOOD SPECIMEN / Unknown [facility] / Unknown 08/25/2025 8:21 AM CDT 08/25/2025 8:21 AM CDT us Samantha HO CHEMISTRY Final Result Performing Organization Address [facility] de Phone Number [email or web address] [address] [address], * TSH WITH REFLEX (08/25/2025 8:21 AM CDT) TSH W/REFLEX TO FT4 2.07 mIU/L 08/26/2025 5:42 AM CDT [facility] Comment: Reference Range > or = 20 Years 0.40-4.50 Ranges First trimester 0.26-2.66 Second trimester 0.55-2.73 Third trimester 0.43-2.91 Blood BLOOD SPECIMEN / Unknown [facility] / Unknown 08/25/2025 8:21 AM CDT 08/25/2025 8:21 AM CDT us Samantha HO CHEMISTRY Final Result Performing Organization Address [facility] de Phone Number [facility] [address] [address], * INSULIN (08/25/2025 8:21 AM CDT) INSULIN 6.0 uIU/mL 08/26/2025 1:00 PM CDT [facility] Comment: Reference Range < or = 18.4 Risk: Optimal < or = 18.4 Moderate NA High >18.4 Adult cardiovascular event risk category cut points (optimal, moderate, high) are based on Insulin Reference Interval studies performed at [facility] in 2021. Blood BLOOD SPECIMEN / Unknown [facility] / Unknown 08/25/2025 8:21 AM CDT 08/25/2025 8:21 AM CDT Samantha HO SEND OUTS Final Result [facility] [address] [place] [address], * sDNA-FIT External (Cologuard) [[id number]] (07/13/2025 12:30 PM CDT) NONINV COLON CA DNA+OCC BLD SCRN STL-IMP Negative Negative 07/19/2025 12:26 PM CDT [facility] (CLIA #:[id number]) Comment: The Cologuard (TM) test was performed on this specimen. NEGATIVE TEST RESULT. A negative Cologuard result indicates a low likelihood that a colorectal cancer (CRC) or advanced adenoma (adenomatous polyps with more advanced pre-malignant features) is present. The chance that a person with a negative Cologuard test has a colorectal cancer is less than 1 in 1500 (negative predictive value >99.9%) or has an advanced adenoma is less than 5.3% (negative predictive value 94.7%). These data are based on a prospective cross-sectional study of 10,000 individuals at average risk for colorectal cancer who were screened with both Cologuard and colonoscopy. (Loan Pratt et al, N Engl J Med 2014;370(14):1286- 1297) The normal value (reference range) for this assay is negative. COLOGUARD RE-SCREENING RECOMMENDATION: Periodic colorectal cancer screening is an important part of preventive healthcare for asymptomatic individuals at average risk for colorectal cancer. Following a negative Cologuard result, the [place] Cancer Society and U.S. Multi-Society Task Force screening guidelines recommend a Cologuard re-screening interval of 3 years. References: [place] Cancer Society Guideline for Colorectal Cancer Screening: https://www.cancer.org/cancer/jcfou-lsgfpi-qexvot/bciqoedeg-bqxckzcrw-tlzdljg/ac s-rec ommendations.html.; Jh WISDOM, Jason MENJIVAR, Girma POMPA, Colorectal Cancer Screening: Recommendations for Physicians and Patients from the U.S. Multi-Society Task Force on Colorectal Cancer Screening , Am J Gastroenterology 2017; 112:6755-2221. TEST DESCRIPTION: Composite algorithmic analysis of stool DNA-biomarkers with hemoglobin immunoassay. Quantitative values of individual biomarkers are not reportable and are not associated with individual biomarker result reference ranges. Cologuard is intended for colorectal cancer screening of adults of either sex, 45 years or older, who are at average-risk for colorectal cancer (CRC). Cologuard has been approved for use by the U.S. FDA. The performance of Cologuard was established in a cross sectional study of average-risk adults aged 50-84. Cologuard performance in patients ages 45 to 49 years was estimated by sub-group analysis of near-age groups. Colonoscopies performed for a positive result may find as the most clinically significant lesion: colorectal cancer [4.0%], advanced adenoma (including sessile serrated polyps greater than or equal to 1cm diameter) [20%] or non- advanced adenoma [31%]; or no colorectal neoplasia [45%]. These estimates are derived from a prospective cross-sectional screening study of 10,000 individuals at average risk for colorectal cancer who were screened with both Cologuard and colonoscopy. (Loan Thomson. et al, N Engl J Med 2014;370(14):3873-4781.) Cologuard may produce a false negative or false positive result (no colorectal cancer or precancerous polyp present at colonoscopy follow up). A negative Cologuard test result does not guarantee the absence of CRC or advanced adenoma (pre-cancer). The current Cologuard screening interval is every 3 years. ([place] Cancer Society and U.S. Multi-Society Task Force). Cologuard performance data in a 10,000 patient pivotal study using colonoscopy as the reference method can be accessed at the following location: www.CLEAR/results. Additional description of the Cologuard test process, warnings and precautions can be found at www.[employer]. Stool specimen (specimen) (Rectum) 07/13/2025 12:30 PM CDT 07/14/2025 10:13 AM CDT Mattie Gould MD URINE Final Resul t [facility] (CLIA #:[id number]) [address] [place] [address], * (ABNORMAL) LIPID PANEL W REFLEX MEASURED LDL (05/31/2025 2:39 PM CDT) CHOLESTEROL, TOTAL 189 <200 mg/dL [facility] HDL CHOLESTEROL 51 > OR = 50 mg/dL [facility] TRIGLYCERIDES 132 <150 mg/dL [facility] LDL-CHOLESTEROL 113(H) mg/dL (calc) [facility] Comment: Reference range: <100 Desirable range <100 mg/dL for primary prevention; <70 mg/dL for patients with CHD or diabetic patients with > or = 2 CHD risk factors. LDL-C is now calculated using the Jose-Pamela calculation, which is a validated novel method providing better accuracy than the Friedewald equation in the estimation of LDL-C. Jose SS et al. NESTOR. 2013;310(19): 5223-8583 (http://education.Serious Parody/faq/UCL814) CHOL/HDLC RATIO 3.7 <5.0 (calc) [facility] NON HDL CHOLESTEROL 138(H) <130 mg/dL (calc) [facility] Comment: For patients with diabetes plus 1 major ASCVD risk factor, treating to a non-HDL-C goal of <100 mg/dL (LDL-C of <70 mg/dL) is considered a therapeutic option. Blood BLOOD SPECIMEN / Unknown 05/31/2025 2:39 PM CDT 05/31/2025 2:40 PM CDT Mattie Gould MD CHEMISTRY Final Resul t [facility] [address] [place] [address], [place] [phone] [facility] [address] [place] [address] * XR MAMMO BILAT SCREENING (03/16/2025 1:17 PM CDT) Anatomical Region Laterality Modality BREASTS, Breast Left, Breast Right Bilateral Mammography Impressions 03/17/2025 11:37 AM CDT There is no radiographic evidence for malignancy. Recommend annual mammograms. MAMMOGRAM ASSESSMENT: ACR 1 Negative PATIENTS: You will also receive a letter with your examination results in an easy to read format. If you have questions about your results, please contact your referring provider. Narrative 03/17/2025 11:37 AM CDT For Patients: As a result of the Cures Act, medical imaging exams and procedure reports are released immediately into your electronic medical record. You may view this report before your referring provider. If you have questions, please contact your health care provider. XR MAMMO BILAT SCREENING [[id number]] CLINICAL HISTORY: This is an asymptomatic 44 y.o. patient. INDICATION FOR EXAM: Mammogram Screening. TECHNIQUE: CC and MLO views were obtained. This study was evaluated with the assistance of Computer-Aided Detection. COMPARISON FILM: Yes 03/16/24 [facility] 11/11/20 [facility] FINDINGS: There are scattered areas of fibroglandular density. There are no dominant masses, suspicious micro calcifications or areas of architectural distortion. Mattie Gould MD MAMMO Final Resul t from Last 3 Months or Most Recently Relevant to Health Maintenance Insurance [facility] OF [place] Advance Directives * Full Code (Latest Code Status on File) Date Activated Date Inactivated Comments 01/28/2016 9:54 AM 01/29/2016 7:22 PM * Full Code Date Activated Date Inactivated Comments 01/27/2016 7:07 AM 01/27/2016 11:34 PM Question Answer Comments Code Status Discussion: Discussed * Full Code Date Activated Date Inactivated Comments 01/20/2016 10:43 AM 01/20/2016 1:43 PM * Full Code Date Activated Date Inactivated Comments 01/18/2016 11:00 PM 01/19/2016 2:37 AM Question Answer Comments Code Status Discussion: Discussed * Full Code Date Activated Date Inactivated Comments 12/31/2015 8:37 PM 01/01/2016 11:59 AM Question Answer Comments Code Status Discussion: Not Discussed Care Teams Dietitian Teaching Relationship Specialty Start Date End Date Mattie Gould MD [address] [facility] [address] PCP - General Family Practice 09/08/20 Pcp, No . 08/12/12 Pcp, No . 08/12/12 Pcp, No . 08/12/12 Samantha Frye PA [address] [facility] [address] [place] [address] Physician's Structures Technician Physician Structures Technician 07/12/[address] [place] [address] Registered Dietitian Assistant Activities Director 07/23/25
[2025-09-03 16:56] VITALS: BP 138/84; PULSE 85; RESP 18; TEMP 37.4; O2SAT 98; BMI 42.4
--- NOTE | 2025-09-03 17:12 | ED.NEUROSD ---
HPI - Neuro Symptoms/Deficit General Date Seen: 09/03/25 Chief Complaint: Neuro Symptoms/Altered Deficit Stated Complaint: MS relapse Time Seen by Provider: 09/03/25 16:52 Source: patient Mode of arrival: ambulatory Limitations: no limitations History of Present Illness HPI Narrative: Patient is a 44-year-old female presenting to the emergency department for optic neuritis of her left eye. She has previously diagnosed with MS 3 years ago when she had optic neuritis for the 1st time. She was treated in the hospital for 4 days with IV steroids. She states since the food she has had no further lesions that she is aware of. She sees narrowing Neurology for this. She started have some eye discomfort and headaches again and she was concerned it was offered neuritis again so she went and saw her pump press operator. The tonsils then spoke to the patient's urologist the patient was scheduled for an MRI which was done yesterday. She got a call today from the nursing staff stating she had optic neuritis seen on MRI need to go to the emergency department for steroids. Denies any vision changes at this time. She states with a previous optic neuritis she had no vision in her left eye. Care the is a headache that she rates as 6/10 but is tolerable. Denies fevers, chills, chest pain, shortness of breath weakness, numbness, abdominal pain. No other concerns noted at this time. Related Data Home Medications ?Medication ?Instructions ?Recorded ?Confirmed escitalopram oxalate 20 mg tablet 20 mg PO DAILY 03/19/23 09/03/25 ofatumumab 20 mg/0.4 mL 20 mg subcut MONTHLY 03/08/25 09/03/25 subcutaneous pen injector (Kesimpta Pen) Allergies Allergy/AdvReac Type Severity Reaction Status Date / Time No Known Drug Allergies Allergy Verified 03/29/25 09:32 Review of Systems Status of ROS: Reports: 10 or more systems reviewed and unremarkable except as noted in History and below [facility] Medical History Sinusitis ?J32.9 - Chronic sinusitis, unspecified (ICD-10) Restless legs syndrome (RLS) ?G25.81 - Restless legs syndrome (ICD-10) Morbid obesity with BMI of 45.0-49.9, adult ?E66.01 - Morbid (severe) obesity due to excess calories (ICD-10) ?Z68.42 - Body mass index [BMI] 45.0-49.9, adult (ICD-10) Insulin resistance ?E88.819 - Insulin resistance, unspecified (ICD-10) Hypothyroid ?E03.9 - Hypothyroidism, unspecified (ICD-10) GERD (gastroesophageal reflux disease) ?K21.9 - Gastro-esophageal reflux disease without esophagitis (ICD-10) Dysmenorrhea ?N94.6 - Dysmenorrhea, unspecified (ICD-10) Anal fissure ?K60.2 - Anal fissure, unspecified (ICD-10) Memory loss ?R41.3 - Other amnesia (ICD-10) Recurrent major depression in full remission ?F33.42 - Major depressive disorder, recurrent, in full remission (ICD-10) Bilateral primary osteoarthritis of knee ?M17.0 - Bilateral primary osteoarthritis of knee (ICD-10) Dyslipidemia ?E78.5 - Hyperlipidemia, unspecified (ICD-10) Anxiety ?F41.9 - Anxiety disorder, unspecified (ICD-10) Surgical History H/O wisdom tooth extraction ?K08.409 - Partial loss of teeth, unspecified cause, unspecified class (ICD-10) Acquired absence of both cervix and uterus ?Z90.710 - Acquired absence of both cervix and uterus (ICD-10) H/O total hysterectomy with bilateral salpingo-oophorectomy (BSO) ?Z90.710 - Acquired absence of both cervix and uterus (ICD-10) ?Z90.722 - Acquired absence of ovaries, bilateral (ICD-10) ?Z90.79 - Acquired absence of other genital organ(s) (ICD-10) H/O gastric sleeve ?Z90.3 - Acquired absence of stomach [part of] (ICD-10) Family History Grandfather Multiple sclerosis Grandmother Multiple sclerosis Social History Narrative: Lives with and 3 children. 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 No alcohol use, nonsmoker. able be medical decision maker if needed. Patient requests full code status. Highest level of school completed/degree received: Master's degree Smoking Status: Never smoker Do you use any of these nicotine containing products: None Second hand tobacco smoke exposure: No How often do you have a drink containing alcohol: never How often do you have six or more drinks on one occasion: Never AUDIT-C Alcohol total score: 0 Non-prescribed substance use: denies use Caffeine: No service: No Exam Narrative: Exam Narrative: Const: Well-nourished, Well-developed, in mild distress Eyes: PERRL, no conjunctival injection, and symmetrical lids HENT: Atraumatic external nose and ears. Moist mucous membranes. Neck: Symmetric, trachea midline, No thyromegaly. CVS: RRR, No murmurs or gallops. Peripheral pulses 2+ and equal in all extremities RESP: Unlabored respiratory effort. Clear to auscultation bilaterally. GI: Nontender/Nondistended, No rebound or guarding. MSK:Extremities w/o deformity, Normal Active ROM Skin: Warm, Dry. No rashes or lesions. Neuro: Normal Muscle tone, No focal neurological deficits. Psych: Awake, Alert, & Oriented x3. Appropriate mood and affect. Const: Vital Signs, click to edit/add: Vital Signs - 24 hr 09/03/25 16:56 Temperature 99.3 F Pulse Rate [Pulse Oximeter] 85 Respiratory Rate 18 Blood Pressure [Ri ght Upper Arm] 138/84 Pulse Oximetry 98 Oxygen Delivery Me thod Room Air Course Vital Signs Vital signs: Initial Vital Signs Temperature 99.3 F 09/03/25 16:56 Temperature Source Temporal Artery Scan 09/03/25 16:56 Pulse Rate 85 09/03/25 16:56 Respiratory Rate 18 09/03/25 16:56 Blood Pressure 138/84 09/03/25 16:56 Blood Pressure Mean 102 09/03/25 16:56 Pulse Oximetry 98 09/03/25 16:56 Oxygen Delivery Method Room Air 09/03/25 16:56 Vital Signs Temperature 99.3 F 09/03/25 16:56 Pulse Rate 85 09/03/25 16:56 Respiratory Rate 18 09/03/25 16:56 Blood Pressure 138/84 09/03/25 16:56 Pulse Oximetry 98 09/03/25 16:56 Oxygen Delivery Method Room Air 09/03/25 16:56 Temperature 99.3 F 09/03/25 16:56 Pulse Rate 85 09/03/25 16:56 Respiratory Rate 18 09/03/25 16:56 Blood Pressure 138/84 09/03/25 16:56 Pulse Oximetry 98 09/03/25 16:56 Oxygen Delivery Method Room Air 09/03/25 16:56 MDM - Neuro Symptoms/Deficit MDM Narrative Medical decision making narrative: Patient is a [age] year old female presenting for a multiple sclerosis flare. Her report she was told that the ED provider should contact the on-call [facility] neurology provider. They were paged. I spoke to Dr. Sweeney who recommends 5 days of 1000 mg IV Solu-Medrol. He states this can be done outpatient. We will give the 1st dose here in the emergency department. She will get the next 2 doses as an outpatient on [facility] in the final to doses as an outpatient at [facility]. She is agreeable to this plan Discharge Plan Discharge Clinical Impression: Optic neuritis Patient Disposition: Home, Self-Care Condition: Stable Instructions: Optic Neuritis (ED) Additional Instructions: You will return to the hospital Saturday and Saturday and will be sent to the med surge floor to get your infusions of IV Solu-Medrol. On Saturday and Saturday you will go to the [facility] for this. Return to emergency department for any other new or worsening symptoms. Prescriptions: No Action Kesimpta Pen 20 mg/0.4 mL pen injector 20 mg subcut MONTHLY Rx Instructions: administer at Weeks 0, 1, and 2 of therapy escitalopram oxalate 20 mg tablet 20 mg PO DAILY Follow Up/Referrals: Mattie Gould MD [Primary Care Provider, Obstetrics] Stand Alone [facility]: [facility] Info Instructions
[2025-09-03] MEDS: METHYLPREDNISOLONE SOD SUCC 1,000 MG in 0.9 % SODIUM CHLORIDE 100 ml 100 ML 232 MG IVPB (17:57)
== END 2025-09-03 18:35 | disposition home or self-care (01) ==
PROVIDERS: Emergency Provider Student in an Organized Health Care Education/Training Program; PCP Family Medicine
DX: H46.8 Other optic neuritis (principal)
CPT/HCPCS: 96365; 99283; 99284; J2919